=== PATIENT | male | born 1990 | race Caucasian/White ===

== ENCOUNTER 2022-02-14 08:15 | Emergency (ER) | payer OTHER ==
[~2022-02-14] VITALS: Ht 182.9 cm; Wt 86.2 kg
[2022-02-14 08:21] VITALS: BP 144/70
--- NOTE | 2022-02-14 08:30 | NUR ---
PT AMBULATED W/ ASSIST TO ROOM 8
--- NOTE | 2022-02-14 08:30 | NUR ---
Andrew dunne in [facility] - 02/14/22 at 0834 by [facility] PT AMBULATED TO ROOM 8
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
[2022-02-14] MEDS ORDERED: KETOROLAC 60 MG/2 ML VIAL IM ONE (08:45)
[2022-02-14] MEDS ORDERED: CYCLOBENZAPRINE 10 MG TAB PO ONE (08:45)
[2022-02-14] MEDS ORDERED: MORPHINE SULFATE 4 MG/ML SYR IM ONE (09:25)
[2022-02-14] MEDS ORDERED: TRAM50TA1 PO (09:30)
[2022-02-14] MEDS ORDERED: LID5T TP (09:30)
[2022-02-14] MEDS ORDERED: IBUP-2213 PO (09:30)
--- NOTE | 2022-02-14 10:05 | NUR ---
Patient discharged with v/s stable. Written and verbal after care instructions FOR LUMBAR STRAIN given and explained. Patient alert, oriented and verbalized understanding of instructions. Ambulatory with steady gait. All questions addressed prior to discharge. ID band removed. Patient advised to follow up with PMD. Rx of IBUPROFEN, LIDOCAINE AND TRAMADOL given. Opportunity to ask questions provided and answered PAPERWORK LEFT AT BEDSIDE
--- NOTE | 2022-02-14 10:05 | NUR ---
Note uzair in EDM - 02/14/22 at 1012 by PHSEP Patient discharged with v/s stable. Written and verbal after care instructions FOR LUMBAR STRAIN given and explained. Patient alert, oriented and verbalized understanding of instructions. Ambulatory with steady gait. All questions addressed prior to discharge. ID band removed. Patient advised to follow up with PMD. Rx of IBUPROFEN, LIDOCAINE AND TRAMADOL given. Opportunity to ask questions provided and answered.
== END 2022-02-14 10:05 | disposition home or self-care (01) ==
LOC: MED 08:15
DX: S39.012A Strain of muscle, fascia and tendon of lower back, initial encounter (principal); Z79.891 Long term (current) use of opiate analgesic; Z79.1 Long term (current) use of non-steroidal anti-inflammatories (NSAID); Z79.899 Other long term (current) drug therapy; V43.52XA Car driver injured in collision with other type car in traffic accident, initial encounter; Y93.89 Activity, other specified; Y92.410 Unspecified street and highway as the place of occurrence of the external cause; Y99.8 Other external cause status
CPT/HCPCS: 96372; 99284; J1885; J2270